=== PATIENT | male | born 1985 | race Two or more races ===

== ENCOUNTER 2019-06-23 12:59 | Emergency (ER) | payer OTHER ==
[~2019-06-23] VITALS: Ht 154.9 cm; Wt 70.3 kg
[2019-06-23 13:30] VITALS: BP 145/88
[2019-06-23] MEDS ORDERED: Tetanus/Diptheria/Pertussis IM ONE (13:30)
--- NOTE | 2019-06-23 13:30 | NUR ---
ED Nurse Note: x-ray at bedside.
--- NOTE | 2019-06-23 13:38 | NUR ---
ED Nurse Note: Patient walked in to ER from work due to Lt hand punture wound. Patient alert and oriented x4 and ambulatory. Skin clean and intact. Calm and cooperative. No cardiac or pulmonary distress noted at this time. per pt, ticket nolan sharp area puntured his Lt hand. no active bleeding noted at this time.
--- NOTE | 2019-06-23 13:44 | Emergency Room Report ---
History of Present Illness General Chief Complaint: Pain Source: Patient Present Illness HPI 33-year-old male with no significant past medical history here complaining of a puncture wound in the left hand that occurred at work today. 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 A puncture wound is noted on the palmar side of the left hand however there is no exit pain in the dorsal side patient reports that the middle of it elevated and he pulled it out however no exit way is noted. Patient has full range of motion, no motor or sensory deficits noted. Patient is rating the pain 5 out of 10 without any radiation. Denies tingling and numbness. No bleeding is noted. Patient is not up-to-date with his tetanus shot. Denies other associated symptoms. Denies chest pain, shortness of breath , palpitation, or other associated symptoms. Allergies: Coded Allergies: No Known Allergies (Unverified , 06/23/19) Patient History Past Medical History: see triage record Past Surgical History: none Pertinent Family History: none Immunizations: other - tdap given today Reviewed Nursing Documentation: PMH: Agreed; PSxH: Agreed Nursing Documentation-PMH Past Medical History: No Stated History Review of Systems All Other Systems: negative except mentioned in HPI Physical Exam Vital Signs Date Time Temp Pulse Resp B/P (MAP) Pulse Ox O2 Delivery O2 Flow Rate FiO2 06/23/19 13:24 98.1 81 18 145/88 (107) 96 Room Air Sp02 EP Interpretation: reviewed, normal General Appearance: no apparent distress, alert, GCS 15, non-toxic Head: normocephalic, atraumatic Eyes: bilateral eye normal inspection, bilateral eye PERRL ENT: hearing grossly normal, normal pharynx, no angioedema, normal voice Neck: full range of motion, supple/symm/no masses Respiratory: chest non-tender, lungs clear, normal breath sounds, no wheezing, speaking full sentences Cardiovascular #1: regular rate, rhythm, no edema, no murmur Cardiovascular #2: 2+ radial (R), 2+ radial (L) Gastrointestinal: normal bowel sounds, non tender, soft, non-distended, no guarding, no rebound Rectal: deferred Musculoskeletal: back normal, digits/nails normal, gait/station normal, normal range of motion, other - Puncture wound noted in left palmar sides of hand Neurologic: alert, oriented x3, responsive, motor strength/tone normal, sensory intact, speech normal Psychiatric: judgement/insight normal, memory normal, mood/affect normal, no suicidal/homicidal ideation Skin: other - Puncture wound, left palmar hand Lymphatic: normal inspection, no adenopathy Genitourinary: no CVA tenderness Medical Decision Making PA Attestation All my diagnosis and treatment plans were reviewed ad discussed with my supervising physician Dr. Talavera Diagnostic Impression: Primary Impression: Puncture wound ER Course 33-year-old male with no significant past medical history here complaining of a puncture wound in the left hand that occurred at work today. 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 A puncture wound is noted on the palmar side of the left hand however there is no exit pain in the dorsal side patient reports that the middle of it elevated and he pulled it out however no exit way is noted. Patient has full range of motion, no motor or sensory deficits noted. Patient is rating the pain 5 out of 10 without any radiation. Denies tingling and numbness. No bleeding is noted. Patient is not up-to-date with his tetanus shot. Denies other associated symptoms. Denies chest pain, shortness of breath , palpitation, or other associated symptoms. Ddx considered but are not limited to : Superficial laceration, deep laceration , tendon involvement with laceration, laceration with foreign body, puncture wound with foreign body, puncture wound without foreign body Vital signs: are WNL, pt. is afebrile H&PE are most consistent with: Puncture wound without foreign body ORDERS: Hand x-ray, Augmentin, ibuprofen ED INTERVENTIONS: Wound clean and dress, Tdap DISCHARGE: At this time pt. is stable for d/c to home. Will provide printed patient care instructions, and any necessary prescriptions. Care plan and follow up instructions have been discussed with the patient prior to discharge. I advised the patient to follow-up with a hand specialist. If worsening symptoms return to emergency room. At this time patient has no motor or sensory deficit and has full range of motion. Other X-Ray Diagnostic Results Other X-Ray Diagnostic Results : X-Ray ordered: Left hand x-ray # of Views/Limited Vs Complete: 3 View Indication: Pain EP Interpretation: Yes PA Xray: Interpretation reviewed, by supervising MD, and agrees with findings. Interpretation: no dislocation, no soft tissue swelling, no fractures Impression: No acute disease Electronically Signed by: Flaco Mcdowell PA-C Last Vital Signs Date Time Temp Pulse Resp B/P (MAP) Pulse Ox O2 Delivery O2 Flow Rate FiO2 06/23/19 13:30 98.1 64 18 145/88 96 Room Air Disposition: HOME, SELF-CARE Condition: Stable Scripts Ibuprofen (Ibu) 800 Mg Tablet 800 MG PO BID, #20 TAB Prov: Flaco De La Rosa 06/23/19 Amoxicillin/Potassium Clav 875-125* (AUGMENTIN 875-125 TABLET*) 1 Each Tablet 1 TAB ORAL TWICE A DAY for 10 Days, #20 TAB Prov: Flaco De La Rosa 06/23/19 Patient Instructions: Puncture Wound, [id number] Additional Instructions: Take medication as directed, follow-up with your primary care provider, if you start having tingling sensation continue to follow-up with a hand specialist Flaco De La Rosa Jun 23, 2019 13:44
[2019-06-23] MEDS ORDERED: IBU800 MG PO (13:45)
[2019-06-23] MEDS ORDERED: AUGMENTIN 875-1 EAC1 ORAL (13:45)
[2019-06-23 14:00] VITALS: BP 145/88
--- NOTE | 2019-06-23 14:04 | NUR ---
ED Nurse Note: Pt cleared by health care Provider for discharge after dressing applied. DC instructions/prescription was given and explained to pt and verbalized understanding of teachings. All medical deviecs such as ID band removed. Pt is AAO x4, ambulatory and left with all personal belongings. workers compensation paper provided.
--- NOTE | 2019-06-23 14:12 | Diagnostic Imaging Report ---
EXAM: XR Left Hand Complete, 3 or More Views CLINICAL HISTORY: TRAUMA TECHNIQUE: Frontal, lateral and oblique views of the left hand. COMPARISON: No relevant prior studies available. FINDINGS: Bones joints: Unremarkable. No acute fracture. No dislocation. Soft tissues: Unremarkable. No radiopaque foreign body. IMPRESSION: Normal left hand x-rays.
== END 2019-06-23 14:00 | disposition home or self-care (01) ==
LOC: EMR 14:00 → EDSEX 14:00
DX: S61.432A Puncture wound without foreign body of left hand, initial encounter (principal); Z23 Encounter for immunization; W22.8XXA Striking against or struck by other objects, initial encounter; Y93.G1 Activity, food preparation and clean up; Y92.511 Restaurant or cafe as the place of occurrence of the external cause; Y99.0 Civilian activity done for income or pay
CPT/HCPCS: 90471; 90715; 99283